=== PATIENT | female | born 1980 ===

== ENCOUNTER 2020-01-31 02:09 | Inpatient (IN) | payer OTHER, SELFPAY ==
[2020-01-31 02:10] VITALS: BP 131/94; PULSE 104; RESP 18; TEMP 36.5; O2SAT 97; BMI 32.9
--- NOTE | 2020-01-31 02:11 | ED_ITS ---
HPI - Psych General: Chief Complaint: Psychiatric Symptoms Stated Complaint: 96 HOUR HOLD Time Seen by Provider: 01/31/20 02:10 Source: patient and police Mode of arrival: other (police) Limitations: no limitations History of Present Illness: HPI Narrative: 39-year-old female who is here from [facility] as a direct admit for suicidal ideation. Patient states that she had suicidal thoughts earlier today but denies any currently. She is under a 96-hour hold. She denies any fever denies any cough and has had no cold-like symptoms. Denies any worsening improving factors. Associated symptoms: Reports depression and suicidal ideation Review of Systems Const: Denies: fever(s), chills, body aches or change in appetite Eyes: Denies: blurry vision or eye discomfort ENMT: Denies: throat pain or dental pain Card: Denies: chest pain Resp: Denies: dyspnea GI: Denies: abdominal pain, nausea, vomiting or diarrhea : Denies: dysuria Musc: Denies: neck pain or back pain Skin/Breast: Denies: rash Neuro: Denies: headache(s) Psych: Reports: depression and suicidal ideation Maicol/Lymph: Denies: easy bruising All/Imm: Denies: urticaria Physical Exam Const: COMMON NORMALS: no acute distress, patient oriented x3 and healthy appearing HENMT: COMMON NORMALS: normocephalic and atraumatic HEAD & SCALP: normocephalic and atraumatic Eye: COMMON NORMALS: Equal, round and reactive pupils present and EOMs intact bilaterally PUPIL: Yes Equal, round and reactive pupils present Neck/C-Spine: COMMON NORMALS: full ROM and supple Chest: COMMONS NORMALS: normal inspection of the chest and normal palpation of entire chest wall Resp: COMMON NORMALS: normal respiratory effort, No retractions, No use of accessory muscles and clear to auscultation bilaterally AUSCULTATION: clear to auscultation bilaterally Cardio: COMMON NORMALS: regular rate, regular rhythm and No murmurs present (Cardio) RATE: regular rate RHYTHM: regular rhythm GI: COMMON NORMALS: Normal to inspection, nondistended, normoactive bowel sounds present, Soft to palpation, non-tender and no masses PALPATION: Yes Soft to palpation Extremity: COMMON NORMALS: normal to inspection and full ROM Neuro: COMMON NORMALS: patient oriented x3, moves all extremities and no focal motor deficits Psych: COMMON NORMALS: mental status grossly normal and cooperative MOOD & AFFECT: Yes depressed mood Skin: COMMON NORMALS: no rashes or lesions noted and no wounds GENERAL SKIN EXAM: no rashes or lesions noted MDM - Psych MDM Narrative: Medical decision making narrative: Patient presents here as a transfer for a 96-hour hold on suicidal ideation. Patient is medically cleared and has no cold-like symptoms. She is stable for admission to the psychiatric unit. Discharge Plan Discharge Patient Disposition: Admitted As Inpatient Clinical Impression: Suicidal ideation Condition: Stable Coding Level of Care Code ED Furnace Maintenance for Ernesto Jones
[2020-01-31 03:11] VITALS: BP 121/87; PULSE 98; RESP 16; TEMP 36.8; O2SAT 95
[2020-01-31] MEDS: hyDROXYzine 25 mg Capsule 50 MG PO ×2 (03:36→21:19)
[2020-01-31 05:31] VITALS: BP 103/69; PULSE 81; RESP 17; TEMP 37; O2SAT 91
[2020-01-31] MEDS: prednisoLONE 1% Op Susp 5 mL Btl 1 DROP EYE-BOTH ×4 (08:24→21:12)
[2020-01-31] MEDS: venlafaxine ER (24HR) 150 mg Capsule PO (08:25)
[2020-01-31] MEDS: venlafaxine ER (24HR) 75 mg Capsule PO (08:25)
[2020-01-31] MEDS: BuSPIRONE 10 mg Tablet PO ×2 (08:25→17:38)
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
[2020-01-31 14:00] VITALS: BP 107/72; PULSE 101; RESP 20; TEMP 36.2; O2SAT 95
--- NOTE | 2020-01-31 19:44 | PC.NURSE ---
Patient was up at the phone very tearful in conversation. She is in her room, withdrawn, and tearful. She said that she is hungry, snack provided, she is sitting in the dark on her bed, stated I don't wanna go out to the dayroom. Pleasant and easy to communicate with. Patient seems sad. Stated I wanna go home and see my babies. Patient requested medication to help relieve anxiety and to help her sleep tonight. Nurse Henok notified.
[2020-01-31] MEDS: ARIPiprazole 10 mg Tablet 5 MG PO (21:17)
[2020-01-31] MEDS: trazodone 50 mg Tablet PO (21:22)
[2020-01-31 22:00] VITALS: BP 107/72; PULSE 101; RESP 20; TEMP 36.2; O2SAT 95
[2020-01-31] MEDS: OLANZapine 5 mg ODT PO (22:42)
[2020-02-01] MEDS: hyDROXYzine 25 mg Capsule 50 MG PO ×2 (03:41→21:29)
--- NOTE | 2020-02-01 03:42 | PC.NURSE ---
patient is tearful, anxious and unable to sleep.
--- NOTE | 2020-02-01 03:50 | PC.NURSE ---
anxious/not resting Patient has had a very difficult night. She has been tearful, withdrawn, and isolates herself. She keeps repeating, I wanna go home to my kids. I don't want to be here. She is not easily consoled. Reported to med nurse Henok that this patient needs relief from increasing anxiety.
[2020-02-01 05:46] VITALS: BP 121/74; PULSE 86; RESP 16; TEMP 37.2; O2SAT 94
[2020-02-01] MEDS: BuSPIRONE 10 mg Tablet PO ×2 (08:03→21:28)
[2020-02-01] MEDS: prednisoLONE 1% Op Susp 5 mL Btl 1 DROP EYE-BOTH ×4 (08:03→21:25)
[2020-02-01] MEDS: venlafaxine ER (24HR) 75 mg Capsule PO ×2 (08:03→22:48)
[2020-02-01] MEDS: venlafaxine ER (24HR) 150 mg Capsule PO ×2 (08:03→21:28)
--- NOTE | 2020-02-01 11:52 | PM.NPN ---
Subjective NPU Subjective: Interval history: The patient says she feels better today. She is nowhere near as agitated and awash with self-loathing. She does miss her children and becomes tearful when she talks about that. 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 I have moved it to the evening. We will see how that works. Medications: Reviewed: Yes Medication Review Details: Current Medications Acetaminophen (Tylenol) 650 mg PO Q4H PRN PRN Reason: MILD PAIN Aripiprazole (Abilify) 5 mg PO BEDTIME ANNETTE Last Admin: 01/31/20 21:17 Dose: 5 mg Documented by: Benztropine Mesylate (Cogentin) 1 mg PO BID PRN PRN Reason: Mild Extrapyramidal symptoms Buspirone HCl (Buspar) 10 mg PO BID ANNETTE Last Admin: 02/01/20 08:03 Dose: 10 mg Documented by: Camphor/Menthol/Phenol (Blistex) 1 applic TOPICAL Q1H PRN PRN Reason: DRYNESS Diphenhydramine HCl (Benadryl) 50 mg IM ONCE PRN PRN Reason: Severe Extrapyramidal Symptoms Diphenhydramine HCl (Benadryl) 50 mg IM Q4H PRN PRN Reason: Severe Aggression Haloperidol (Haldol) 5 mg PO Q4H PRN PRN Reason: AGITATION Haloperidol Lactate (Haldol Inj) 5 mg IM Q4H PRN PRN Reason: Severe Aggression Hydroxyzine Pamoate (Vistaril) 50 mg PO Q6H PRN PRN Reason: ANXIETY Last Admin: 02/01/20 03:41 Dose: 50 mg Documented by: Hydroxyzine Pamoate (Vistaril) 25 mg PO BEDTIME PRN PRN Reason: Anxiety Loperamide HCl (Imodium Capsule) 2 mg PO Q6H PRN PRN Reason: DIARRHEA Lorazepam (Ativan) 2 mg IM Q4H PRN PRN Reason: Severe Aggression Nicotine (Nicoderm 21 Mg Patch) 1 patch TRANSDERMA DAILY PRN PRN Reason: NICOTINE WITHDRAWAL Nicotine Polacrilex (Nicorette) 2 mg BUCCAL Q2H PRN PRN Reason: NICOTINE WITHDRAWAL Olanzapine (Zyprexa Zydis) 5 mg PO Q4H PRN PRN Reason: Agitation/Psychosis Last Admin: 01/31/20 22:42 Dose: 5 mg Documented by: Ondansetron HCl (Zofran) 4 mg PO Q6H PRN PRN Reason: NAUSEA AND VOMITING Prednisolone Acetate (Pred Forte) 1 drop EYE-BOTH QID ANNETTE Last Admin: 02/01/20 08:03 Dose: 1 drop Documented by: Trazodone HCl (Desyrel) 50 mg PO BEDTIME PRN PRN Reason: SLEEP Last Admin: 01/31/20 21:22 Dose: 50 mg Documented by: Trazodone HCl (Desyrel) 50 mg PO BEDTIME PRN PRN Reason: Sleep Venlafaxine HCl (Effexor Xr) 75 mg PO BEDTIME ANNETTE Venlafaxine HCl (Effexor Xr) 150 mg PO BEDTIME [facility] Mental Status Exam MSE Comments: This is a 39-year-old female who seems younger than her stated age. She is not as distraught distraught and is now well-kept. Mood is calm and affect is less agitated and tearful. Thought processes are organized and free of blocking and racing. There is, however, evidence of psychosis: The patient is awash with self-loathing and admits to many of the things which are reported in affidavits attached to the 96-hour petition. Speech is of normal rate and volume without dysarthria, aprosody or pressure. She never had any homicidal ideation, plan or intent. She is patently a gentle soul. She now wants to live on and teach her children. Vitals/I&O/Wt Last Vital Signs Temp 99.0 F 02/01/20 05:46 Pulse 86 02/01/20 05:46 Resp 16 02/01/20 05:46 BP 121/74 02/01/20 05:46 Pulse Ox 94 02/01/20 05:46 Weight last 48 hrs Weight 180 lb A&P Assessment and plan (1) Psychotic depression: The patient's symptoms, including her suicidal ideation, are improving rapidly. The absence of venlafaxine and the low aripiprazole dose may of contributed to her clinical crisis. Status: Acute (2) Suicidal ideation: See above. Status: Acute Involuntary Hold Information 96 Hour Hold: 96 Hour Involuntary Admission: Yes 96 Hour Hold Ending Date: 02/06/20 96 Hour Hold Ending Time: 02:14 Attestations NPU Medical Necessity Statement*: I anticipate 4-5 midnights additional hospital stay Time Spent in Patient Care: Greater than 35 minutes (>than 50% of time spent in counselling and/or direct pt care on unit). Coding Level of Care Code Acute Radar Mechanic for Ernesto Fwd Diagnoses Psychotic depression F32.3 Suicidal ideation R45.851
[2020-02-01 14:00] VITALS: BP 131/86; PULSE 102; RESP 20; TEMP 36.3; O2SAT 97
[2020-02-01 20:38] VITALS: BP 119/79; PULSE 98; RESP 18; TEMP 36.7; O2SAT 95
[2020-02-01] MEDS: trazodone 50 mg Tablet PO (21:26)
--- NOTE | 2020-02-01 23:09 | PC.NURSE ---
Addendum entered by Shanna Carballo RN 02/02/20 04:49: Patient responded well to medications. She is less anxious and tonight without interruption. Original Note: visteril/trazodone Visteril 50mg po given for anxiety trazodone 50mg given for sleep.
[2020-02-02 06:00] VITALS: BP 118/72; PULSE 88; RESP 17; TEMP 36.7; O2SAT 94
[2020-02-02] MEDS: BuSPIRONE 10 mg Tablet PO ×2 (07:50→21:17)
[2020-02-02] MEDS: prednisoLONE 1% Op Susp 5 mL Btl 1 DROP EYE-BOTH ×4 (07:50→23:16)
[2020-02-02 13:59] VITALS: BP 136/96; PULSE 94; RESP 18; TEMP 36.3; O2SAT 96
--- NOTE | 2020-02-02 14:12 | PC.NURSE ---
necklace removed & put in safe with other valuables
--- NOTE | 2020-02-02 16:00 | P.PN_ITS ---
Subjective NPU Subjective: Interval history: Carin presents today reporting that she is feeling better. She says that Dr. Miranda made some adjustments and change the time of some of her dosing. He also increased her Abilify. We discussed her being on a 96-hour hold. We also discussed the possibility of discharge and I agreed to consider discharge tomorrow. She reports that she is eating and sleeping well. She endorsed really wanting to get home for HER-2 children and she reports that her would pick her up but is a 3-1/2-[address] drive. Mental Status Exam MSE Comments: This is an obese white female with adequate rest, reactive. No abnormal movements. Cooperative with exam in no acute distress. Speech was normal rate and volume. Mood described as better, affect congruent. Thought process organized. Thought content: Patient denied any suicidal or homicidal ideation, there were no delusions reported or noted, she denied any auditory visual hallucinations. Attention and concentration were intact and memory appeared reliable but none were formally tested. She is alert and oriented x3. Insight and judgment appears fair. Vitals/I&O/Wt Last Vital Signs Temp 97.4 F L 02/02/20 13:59 Pulse 94 02/02/20 13:59 Resp 18 02/02/20 13:59 BP 136/96 02/02/20 13:59 Pulse Ox 96 02/02/20 13:59 A&P Assessment and plan (1) Psychotic depression: Status: Acute (2) Suicidal ideation: Status: Acute Additional A&P Information This is a 39-year-old white female with depression and psychosis who had present ed with suicidal thinking who presents reporting that she is improving with the medication adjustments and is open to consideration for discharge. 1. Continue current medication. 2. Continue every 15 minute checks for safety. 3. Encourage individual, group and milieu therapy. 4. Work with treatment team for possible discharge tomorrow. Involuntary Hold Information 96 Hour Hold: 96 Hour Involuntary Admission: Yes 96 Hour Hold Ending Date: 02/06/20 96 Hour Hold Ending Time: 02:14 Attestations NPU Medical Necessity Statement*: Inpatient hospitalization is medically necessary and the clinically appropriate intervention at this time. We will monitor medications and make changes as indicated. Tentative discharge tomorrow. Coding Level of Care Code Acute Radiation Monitor for Ernesto Jones Diagnoses Psychotic depression F32.3 Suicidal ideation R45.851
[2020-02-02 16:01] VITALS: BP 136/96; PULSE 94; RESP 18; TEMP 36.3; O2SAT 96
[2020-02-02] MEDS: trazodone 50 mg Tablet PO (21:17)
[2020-02-02] MEDS: hyDROXYzine 25 mg Capsule 50 MG PO (21:17)
[2020-02-02] MEDS: venlafaxine ER (24HR) 75 mg Capsule PO (21:17)
[2020-02-02] MEDS: ARIPiprazole 10 mg Tablet 5 MG PO (21:17)
[2020-02-02] MEDS: venlafaxine ER (24HR) 150 mg Capsule PO (21:17)
[2020-02-02 22:00] VITALS: BP 163/80; PULSE 96; RESP 18; TEMP 36.5; O2SAT 92
[2020-02-02] MEDS: acetaminophen 325 mg Tablet 650 MG PO (23:15)
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
[2020-02-03 06:00] VITALS: BP 101/62; PULSE 81; RESP 16; TEMP 36.4; O2SAT 94
[2020-02-03] MEDS: prednisoLONE 1% Op Susp 5 mL Btl 1 DROP EYE-BOTH (09:01)
[2020-02-03] MEDS: BuSPIRONE 10 mg Tablet PO (09:02)
[2020-02-03 11:38] VITALS: BP 101/62; PULSE 81; RESP 16; TEMP 36.4; O2SAT 94
== END 2020-02-03 12:01 | disposition home or self-care (01) | DRG 885 ==
LOC: ER 02:16 → NP 02:57
PROVIDERS: Admitting Provider Psychiatry & Neurology Psychiatry; Visit Provider Psychiatry & Neurology Psychiatry
DX: F32.3 Major depressive disorder, single episode, severe with psychotic features (principal); R45.851 Suicidal ideations; F41.9 Anxiety disorder, unspecified
CPT/HCPCS: 12345; 99284